=== PATIENT | male | born 1940 | race Caucasian/White ===

== ENCOUNTER 2016-10-29 05:14 | Inpatient (IN) ==
[2016-10-27 14:29] LABS: MANUAL DIFF NEEDED? NO; URINE MICRO REVIEW NEEDED? NO; URINE SOURCE CLEAN CATCH
--- NOTE | 2016-10-27 14:34 | EKG Report ---
Test Performed on : 10/27/2016 2:14:49 PM Test Reason : PAT Blood Pressure : / mmHG Vent. Rate : 057 BPM Atrial Rate : 057 BPM P-R Int : 172 ms QRS Dur : 100 ms QT Int : 478 ms P-R-T Axes : 023 -22 -06 degrees QTc Int : 465 ms Sinus bradycardia. Leftward axis Otherwise normal ECG No previous ECGs available Confirmed by Garo Cartagena DO ([id number]) on 10/27/2016 5:21:54 PM
[2016-10-27 14:39] LABS: BASO% 2.1 % (0.0-0.8); BILIRUBIN URINE NEGATIVE (NEGATIVE); BLOOD URINE NEGATIVE (NEGATIVE); COLOR YELLOW; EOS% 6.5 % (0.0-10.0); GLUCOSE URINE NEGATIVE (NEGATIVE); HEMATOCRIT 40.3 % (42.0-52.0); HEMOGLOBIN 14.3 g/dL (14.0-18.0); LEUKOCYTES URINE NEGATIVE (NEGATIVE); LYMPH# 2.55 X1000 (1.2-3.4); LYMPH% 27.7 % (20.5-51.1); MCH 32.6 PG (27-31); MCHC 35.5 g/dL (33-37); MONO# 0.58 X1000 (0.11-0.59); MONO% 6.3 % (1.7-9.3); MPV 9.7 FL (7.4-10.4); NEUT% 57.4 % (42.2-75.2); NITRITE URINE NEGATIVE (NEGATIVE); PLT 362 X1000 (130-400); PROTEIN URINE TRACE mg/dL (NEGATIVE); RBC 4.38 XMIL (4.7-6.1); SP GRAVITY URINE 1.008; TURBIDITY URINE CLEAR (CLEAR); UR EPITHELIAL CELLS <10 /HPF (<10); URINE BACTERIA NEGATIVE /HPF; URINE RBC <10 /HPF (<10); URINE WBC <10 /HPF (<10); UROBILINOGEN URINE NORMAL (NORMAL)
[2016-10-27 14:50] LABS: INR 1.05; PROTIME 11.1 Seconds (9.2-11.7); PTT 28.8 Seconds (22.0-36.0)
[2016-10-27 14:58] LABS: AGAP 12; BUN 15 mg/dL (8-22); CALCIUM 9.2 mg/dL (8.8-10.2); CHLORIDE 102 mmol/L (98-107); COSMO 282; POTASSIUM 4.1 mmol/L (3.5-5.1); SODIUM 141 mmol/L (136-145); TCO2 27 mmol/L (25-35)
[2016-10-29] MEDS ORDERED: COLACE ONE (09:38)
[2016-10-29] MEDS ORDERED: PEPCID ONE (09:38)
[2016-10-29] MEDS ORDERED: LYRICA ONE (09:38)
[2016-10-29] MEDS ORDERED: REGLAN ONE (09:38)
[2016-10-29] MEDS ORDERED: CELEBREX ONE (09:38)
[2016-10-29] MEDS ORDERED: LR 1,000 ML ONE (09:39)
[2016-10-29] MEDS ORDERED: KEFZOL 2 GM/D5W 2 GM/50 ML IVPB ONE (09:40)
[2016-10-29] MEDS ORDERED: XYLOCAINE-MPF 2% ONE (11:55)
[2016-10-29] MEDS ORDERED: ROBINUL ONE ×3 (11:55→13:26)
[2016-10-29] MEDS ORDERED: NORCURON ONE (11:55)
[2016-10-29] MEDS ORDERED: DIPRIVAN 1% ONE (11:56)
[2016-10-29] MEDS ORDERED: NAROPIN 0.5% ONE (12:02)
[2016-10-29] MEDS ORDERED: TORADOL ONE (12:08)
[2016-10-29] MEDS ORDERED: SENSORCAINE 0.25%/EPI 1:200,000 ONE (12:08)
[2016-10-29] MEDS ORDERED: SODIUM CHLORIDE 0.9% ONE (12:08)
[2016-10-29] MEDS ORDERED: NEOSPORIN G.U. IRRIGANT ONE (12:08)
[2016-10-29] MEDS ORDERED: EXPAREL 1.3% ONE (12:08)
[2016-10-29] MEDS ORDERED: DURAMORPH ONE (12:08)
[2016-10-29] MEDS ORDERED: CYKLOKAPRON 1,000 MG/NS 1,000 MG/100 ML IVPB ONE (12:08)
[2016-10-29] MEDS ORDERED: QUELICIN (DOSE) ONE (12:44)
[2016-10-29] MEDS ORDERED: EPHEDRINE ONE (13:26)
[2016-10-29] MEDS ORDERED: NEOSTIGMINE ONE (13:27)
--- NOTE | 2016-10-29 14:20 | OPERATIVE NOTE ---
PROCEDURE DATE: 10/29/2016 PREOPERATIVE DIAGNOSIS: Right glenohumeral arthritis with chronic rotator cuff tear. POSTOPERATIVE DIAGNOSIS: Right glenohumeral arthritis with chronic rotator cuff tear. PROCEDURE: Right reverse shoulder arthroplasty with DePuy size 12 press-fit stem, a 42+ 6 humeral cup, a 42 eccentric Glenosphere, and a standard metaglene. SURGEON: Bladimir Peña MD. ACTIVITY THERAPIST: Santos Lozada. SECOND LEATHER TANNER: Louis Marino. ANESTHESIA: General. IV FLUIDS: 1500 mL lactated Ringer. ESTIMATED BLOOD LOSS: 100 mL. COMPLICATIONS: None. INDICATION: The patient is a pleasant, 76-year-old male with chronic history of pain and discomfort of the right shoulder. Continued pain and discomfort in spite of appropriate nonoperative treatment. Studies revealed findings consistent with right glenohumeral arthritis with chronic rotator cuff tear. Recommendation to proceed with right reverse shoulder arthroplasty was offered. Risks of surgery were explained, including the risks of anesthesia, , bleeding, infection, failure to relieve pain, postop stiffness, nerve injury, blood clots and other imponderables. All questions answered. Patient and family wished to proceed with surgery. DETAILS OF OPERATION: The patient was taken to the operating room, placed supine on the operating table. Once adequate anesthesia was obtained, patient was placed in the semi-Strauss beach-chair position. The right shoulder was subsequently prepped draped in usual sterile fashion. A standard deltopectoral incision made with skin knife. Hemostasis was obtained using electrocautery. The deltopectoral interval was then developed. Retractors then placed. The clavipectoral fascia was then elevated as well. Attention was turned to the subscapularis and stay sutures placed. Approximately 1 cm medial to its insertion it was released. The shoulder was then dislocated anteriorly, and the patient had evidence of the chronic rotator cuff tear. A starting reamer was then passed into the intramedullary canal. Sequential reaming was conducted up to size 12. An intramedullary guide with the proximal humeral cutting block was pinned in position. The proximal head of the humeral head was then resected. A protective disk was then placed. Attention was then turned to the glenoid where circumferential dissection was then performed with a deep knife. After this had been performed, a guide was then placed on the glenoid and a guide pin was placed. Reaming was then conducted. Central hole was then dilated. The wound was copiously irrigated with antibiotic pulsatile lavage. A standard metaglene was then impacted in position. Two locking screws and two nonlocking screws were placed and had good fixation. The wound was copiously irrigated once again. A. 42 eccentric Glenosphere was placed with the eccentricity placed inferiorly. Attention was then turned to the proximal humerus. Intramedullary guide was then placed and the proximal humerus was then reamed. After this had been performed, the intramedullary canal was copiously irrigated with antibiotic pulsatile lavage. A size 12 press-fit stem was then placed with impaction autologous bone graft. It had good purchase. Trial cup size 42+ was trialed, and a 42+ 6 humeral cup had excellent stability and range of motion. Trial cup was then removed. Copious irrigation was then performed once again with antibiotic pulsatile lavage. A 42+ 6 humeral cup was then placed and the shoulder was reduced, It was carried through range of motion. It had excellent stability and range of motion. The wound was copiously irrigated once again. A #2 FiberWire was used to repair the subscapularis tendon and it appeared to have good repair. Exparel was placed in the deep soft tissue, as well as subcutaneous tissue. The wound was copiously irrigated once again. Then, 2-0 Vicryl was used to repair the subcutaneous tissue, followed by running 2-0 Prolene. Benzoin Steri-Strips applied. Adaptic, sterile 4 x 4s, ABD pad and tape applied to the right shoulder, followed by shoulder immobilizer. All counts were correct. The patient tolerated the procedure well and was transferred to the recovery room in stable condition. cc: Bladimir Peña MD
[2016-10-29 14:21] LABS: URINE CULTURE NEEDED? NO; URINE MICRO REVIEW NEEDED? NO; URINE SOURCE CATH
[2016-10-29 14:23] LABS: BILIRUBIN URINE NEGATIVE (NEGATIVE); BLOOD URINE MODERATE (NEGATIVE); COLOR YELLOW; GLUCOSE URINE NEGATIVE (NEGATIVE); LEUKOCYTES URINE NEGATIVE (NEGATIVE); NITRITE URINE NEGATIVE (NEGATIVE); PH URINE 6.5; PROTEIN URINE 70 mg/dL (NEGATIVE); SP GRAVITY URINE 1.019; TURBIDITY URINE CLEAR (CLEAR); UR EPITHELIAL CELLS <10 /HPF (<10); URINE BACTERIA NEGATIVE /HPF; URINE RBC TNTC /HPF (<10); URINE WBC <10 /HPF (<10); UROBILINOGEN URINE NORMAL (NORMAL)
[2016-10-29] MEDS ORDERED: NS 1,000 ML ONE (14:47)
--- NOTE | 2016-10-29 14:59 | Diag Imaging Result Doc PS360 ---
EXAM: SHOULDER 1 VIEW RIGHT HISTORY: Right total shoulder TECHNIQUE: Portable single view COMPARISON: None. FINDINGS: There has been orthopedic replacement of the right shoulder. Good positioning in the humeral shaft. No separation at the common clavicular joint. IMPRESSION: Recently replaced right shoulder. Electronically signed by Jas Thorne 10/29/2016 2:56 PM
[2016-10-29] MEDS: NS 1,000 ML IV SCH ×2 (15:35→22:50)
[2016-10-29] MEDS: ADVAIR 100/50 DISKUS INH SCH ×2 (16:03→19:35)
[2016-10-29] MEDS ORDERED: MORPHINE IV PRN (16:38)
[2016-10-29] MEDS ORDERED: MILK OF MAGNESIA PO PRN (16:45)
[2016-10-29] MEDS ORDERED: ZOFRAN PO PRN (16:45)
[2016-10-29] MEDS: TYLENOL PO SCH ×2 (20:02→22:45)
[2016-10-29] MEDS: MICARDIS PO SCH (20:02)
[2016-10-29] MEDS: CORDARONE PO SCH (20:02)
[2016-10-29] MEDS: COREG PO SCH ×2 (20:03→22:45)
[2016-10-29] MEDS: COLACE PO SCH (22:45)
[2016-10-29] MEDS: PERIDEX MT SCH (22:45)
[2016-10-29] MEDS: KEFZOL 1 GM/D5W 1 GM/50 ML IVPB IV SCH (22:46)
[2016-10-30] MEDS: OXY IR PO PRN ×2 (01:08→04:41)
[2016-10-30] MEDS: NS 1,000 ML IV SCH (01:09)
[2016-10-30] MEDS: TYLENOL PO SCH ×2 (04:40→10:32)
[2016-10-30 05:58] LABS: HEMATOCRIT 33.8 % (42.0-52.0); HEMOGLOBIN 11.7 g/dL (14.0-18.0)
[2016-10-30 06:01] LABS: AGAP 11; BUN 17 mg/dL (8-22); CHLORIDE 106 mmol/L (98-107); COSMO 286; POTASSIUM 4.3 mmol/L (3.5-5.1); SODIUM 143 mmol/L (136-145); TCO2 26 mmol/L (25-35)
[2016-10-30] MEDS: XARELTO PO SCH ×2 (06:18→10:23)
[2016-10-30] MEDS: KEFZOL 1 GM/D5W 1 GM/50 ML IVPB IV SCH (06:18)
--- NOTE | 2016-10-30 07:12 | PROGRESS NOTE ---
DATE: 10/30/2016 SUBJECTIVE: The patient is a pleasant, 76-year-old male who is 1 day status post right reverse total shoulder arthroplasty. The patient is currently resting comfortably and has no complaints. OBJECTIVE: His dressing is intact. He is neurovascularly distally. Good ribbon lap machine tender strength. Good range of motion of his elbow. LABORATORY DATA: His hemoglobin is 11.7, hematocrit is 33.8. IMPRESSION: Postoperative day #1 status post right reverse total shoulder arthroplasty. PLAN: At this point, will discontinue his drain, change his dressing, and Hep-Lock his IV. Will plan on discharging home, and the patient will plan on outpatient physical therapy. He will follow up in the office on 11/10/2016. cc: Bladimir Peña MD
[2016-10-30] MEDS: ADVAIR 100/50 DISKUS INH SCH (07:42)
[2016-10-30] MEDS: PERIDEX MT SCH (08:45)
[2016-10-30] MEDS: COLACE PO SCH (08:45)
[2016-10-30] MEDS: COREG PO SCH (08:49)
[2016-10-30] MEDS: MICARDIS PO SCH (08:49)
[2016-10-30] MEDS: CORDARONE PO SCH (08:49)
[2016-10-30] MEDS ORDERED: HYDROCHLOROTHIAZIDE PO SCH (09:00)
[2016-10-30] MEDS ORDERED: PEPCID PO SCH (09:00)
[2016-10-30 11:28] VITALS: BP 137/65
== END 2016-10-30 12:14 | disposition home health service (06) ==
LOC: SURHOLD 05:14 → 4N 15:35
PROVIDERS: ADMIT Orthopaedic Surgery Adult Reconstructive Orthopaedic Surgery; ATTEND Orthopaedic Surgery Adult Reconstructive Orthopaedic Surgery